=== PATIENT | female | born 1965 | race Caucasian/White ===

== ENCOUNTER 2021-12-03 14:49 | Emergency (ER) | payer BC ==
[2021-12-03] MEDS ORDERED: Lidocaine 1% 5 ML VIAL INJECT ONE (16:22)
[2021-12-03] MEDS ORDERED: Bacitracin Oint 1 GM U/D Packet TOP ONE (16:22)
== END 2021-12-03 17:10 | disposition home or self-care (01) ==
LOC: JP.ED 14:49
DX: S61.211A Laceration without foreign body of left index finger without damage to nail, initial encounter (principal); Z88.1 Allergy status to other antibiotic agents; Z88.2 Allergy status to sulfonamides; W26.8XXA Contact with other sharp object(s), not elsewhere classified, initial encounter
CPT/HCPCS: 12001; 99282